=== PATIENT | male | born 1955 | race Caucasian/White ===

== ENCOUNTER → 2024-05-06 13:49 | Outpatient (BNVA) | payer MEDICARE, SELFPAY | PROVIDERS: Referring Provider Nurse Practitioner Family; Visit Provider Nurse Practitioner | DX: M79.642 Pain in left hand (principal); M18.12 Unilateral primary osteoarthritis of first carpometacarpal joint, left hand; Z46.89 Encounter for fitting and adjustment of other specified devices | CPT/HCPCS: 73130 ==

== ENCOUNTER 2024-05-06 15:41 | Outpatient (CLI) | payer MEDICARE, SELFPAY | END 2024-05-06 15:42 | disposition home or self-care (01) | LOC: SPT 15:42 | PROVIDERS: Visit Provider Nurse Practitioner | DX: Z46.89 Encounter for fitting and adjustment of other specified devices (principal); M18.12 Unilateral primary osteoarthritis of first carpometacarpal joint, left hand | CPT/HCPCS: L3924 ==

== ENCOUNTER 2025-10-15 11:55 | Inpatient (IN) | payer MEDICARE, SELFPAY ==
[2025-10-15] VITALS (40 sets, daily range): BP systolic 113–177; BP diastolic 56–126; PULSE 31–108; RESP 0–24; TEMP 36.4; O2SAT 92–98; BMI 31.0; BMI 30.2
--- NOTE | 2025-10-15 11:56 | XRR_ITS ---
PROCEDURE INFORMATION: Exam: XR Chest Exam date and time: 10/15/2025 12:23 PM Age: 70 years old Clinical indication: Pain; Chest pressure; Additional info: Cp TECHNIQUE: Imaging protocol: Radiologic exam of the chest. Views: 1 view. COMPARISON: No relevant prior studies available. FINDINGS: Lungs: Unremarkable. No consolidation. Pleural spaces: Unremarkable. No pleural effusion. No pneumothorax. Heart/Mediastinum: Unremarkable. No cardiomegaly. Bones/joints: Mild degenerative changes of the thoracic spine and bilateral glenohumeral joints. XR/XR chest 1V portable [id number] IMPRESSION: No acute findings.
--- OUTSIDE RECORDS SUMMARY | 2025-10-15 12:01 | XMS_ITS | Data Portability ---
Author Organization [facility] Conrado Cain [facility] Address [address] [place] [address] Assessment Encounter Date Assessment Date Assessment LastModified by Organization Details LastModified Time 07/17/2023 07/17/2023 Toenail fungus, discussed OTC remedies as well as prescription remedies. He will stick with OTC at this time. Overall he is doing well. Working on finishing his house. Not available 07/18/2023 12:54:25 02/03/2024 02/03/2024 Overall patient has been doing well. He has had some troubles with his joints as of late. CCA form completed at today's visit. Patient presented to office today for their Medicare Annual Wellness Visit. Education was provided on healthy nutrition, including a diet rich in fruits and vegetables, minimizing simple carbohydrates, salt, and saturated fats. Encouraged regular cardiovascular exercise such as walking at least 30 minutes daily, 5 times per week. Emphasized preventive health measures and educated pt on fall prevention and community-based lifestyle interventions to help reduce health risks and promote healthy living. Not available 02/17/2024 13:37:01 08/05/2024 08/05/2024 Patient here for a check-up today. Discussed with him taking some magnesium glycinate to help sleep at night. Not available 08/11/2024 22:15:56 04/21/2025 04/21/2025 Patient here for a check-up today. Overall he has been doing okay. This summer he has jury duty for . CCA form completed at today's visit. Not available 04/21/2025 10:26:34 Plan of Treatment Reminders Order Date Submit Date Provider Last Modified By Organization Details Last Modified Time Details Appointments OFFICE VISIT 20 2024 08:40A LETY MULLIGAN Not available Not available Not available Lab lipid panel, blood 2024 025 [facility], [address], [address], [place], [address], 04/21/2025 11:50:11 thyrotrop in, QN, serum or plasma 2024 025 [facility], [address], [address], [place], [address], 04/21/2025 12:09:09 CMP, serum or plasma 2024 025 [facility], [address], [address], [place], [address], 04/21/2025 11:50:09 CBC 2024 025 [facility], [address], [place], [address], 04/21/2025 11:12:33 PSA, total, serum or plasma 2023 024 [facility], [address] [place] [address] [address], [address] [place], [address], 08/17/2024 07:42:12 CMP, serum or plasma 2023 024 [facility], [address], [address], [place], [address], 08/05/2024 12:49:38 [facility], [address], [address], [place], [address], 08/05/2024 12:22:44 TSH, serum or plasma 2023 024 [facility] ([facility]), [address] [place], [address], 08/05/2024 12:36:20 vitamin D, 25-hydrox y, total, serum 2023 024 LE ROY [facility], [address] [place] [address], [address] [place], [address], 08/06/2024 06:36:03 CMP, serum or plasma 2023 024 [facility], [address] [place] [address], [address], 02/03/2024 14:23:02 lipid panel, blood 2023 024 [facility], [address] [place] [address], [address], 02/03/2024 14:23:04 CBC 2023 024 [facility], [address] [place] [address], [address], 02/03/2024 13:28:08 TSH, serum or plasma 2023 024 [facility] ([facility]), [address] [place] [address], [address], 02/03/2024 14:08:06 Referral None recorded. Procedures None recorded. Surgeries None recorded. Imaging XR, hand, 3 or more view [address] ([facility]), [address] [place] [address], [address], 02/18/2024 11:38:56 Medication Orders amlodipin e 10 mg tablet 2023 [facility][id number], [address], [place], [place], [id number], 08/05/2024 11:31:50 metoprolo l succinate ER 100 mg tablet,ex tended release 24 hr 2023 [facility] #[id number], [address], [place], [place], [id number], 08/05/2024 11:31:49 neomycin- polymyxin -hydrocor t 3.5 mg-10,000 unit/mL-1 % ear drops,zheng p 2023 [facility] #[id number], [address], [place], [place], [id number], 08/05/2024 10:54:50 Patient TargetsNo targets recorded. Patient Instructions Encounter Date Encounter Id Patient Instructions Last Modified By Organization Details Last Modified Time 07/17/2023 [id number] Call or return for questions or concerns. He will call for colonoscopy consult to hopefully get it done when his brother is here to help with transportation. Not available 07/18/2023 12:53:48 02/03/2024 [id number] advance directives: care instructions Not available 02/17/2024 13:37:28 Call or return for questions or concerns. Not available 02/03/2024 11:22:18 Discussed and explained advance directives such as standard forms to the patient. Not available 02/17/2024 13:37:16 08/05/2024 [id number] Call or return for questions or concerns. Not available 08/05/2024 11:14:19 04/21/2025 [id number] advance directives: care instructions Not available 04/21/2025 10:41:05 Call or return for questions or concerns. Not available 04/21/2025 10:23:08 Reason for Referral None Reported. Results Created Date Observation Date Name Description Value Unit Range Abnormal Flag Note LastModifiedBy Organization Detail LastModifiedTime 02/03/20 24 02/03/2024 CBC WBC 7.0 x10 4.5-10 .5 Not Available [facility] [address], [place], [address], 02/03/2024 13:25:03 02/03/20 24 02/03/2024 CBC RBC 5.10 x10 4.30-5 .90 Not Available [facility] [address], [place], [address], 02/03/2024 13:25:03 02/03/20 24 02/03/2024 CBC HGB 17.0 g/dL 13.5-1 8.0 Not Available [facility] [address], [place], [address], 02/03/2024 13:25:03 02/03/20 24 02/03/2024 CBC HCT 47.4 % 35.0-6 0.0 Not Available [facility] [address] [facility] 1, [place], [address], 02/03/2024 13:25:03 02/03/20 24 02/03/2024 CBC MCV 93.0 fL 80.0-9 9.9 Not Available [facility] [address] [facility] 1, [place], [address], 02/03/2024 13:25:03 02/03/20 24 02/03/2024 CBC MCH 33.4 pg 27.0-3 2.0 high Not Available [facility] [address] [facility] [address], [place], [address], 02/03/2024 13:25:03 02/03/20 24 02/03/2024 CBC MCHC 35.9 g/dL 32.0-3 6.0 Not Available [facility] [address] [facility] 1, [place], [address], 02/03/2024 13:25:03 02/03/20 24 02/03/2024 CBC RDW 13.1 % 11.5-1 4.5 Not Available [facility] [address] [facility] 1, [place], [address], 02/03/2024 13:25:03 02/03/20 24 02/03/2024 CBC plt 235.2 x10 150.0- 451.0 Not Available [facility] [address] [place] [address] [facility] 1, [place], [address], 02/03/2024 13:25:03 02/03/20 24 02/03/2024 CBC lymphocytes % 30.1 % 20.0-5 0.0 Not Available [facility] [address] [facility] 1, [place], [address], 02/03/2024 13:25:03 02/03/20 24 02/03/2024 CBC granulcytes % 60.3 % 30.0-7 0.0 Not Available [facility] [address] [facility] 1, [place], [address], 02/03/2024 13:25:03 02/03/20 24 02/03/2024 CBC monocytes % 7.8 % 2.0-10 .0 Not Available [place] [facility] [address] [facility] 1, [place], [address], 02/03/2024 13:25:03 02/03/20 24 02/03/2024 CBC granulcytes# 4.2 x10 Not Tracey ilable [facility] [address] [place] [facility], [place], [address], 02/03/2024 13:25:03 02/03/20 24 02/03/2024 CBC lymphocytes # 2.1 x10 Not Available [facility] [address] [address], [place], [address], 02/03/2024 13:25:03 02/03/20 24 02/03/2024 CBC monocytes # 0.6 x10 Not [facility] [address] [address], [place], [address], 02/03/2024 13:25:03 02/03/20 24 02/03/2024 CMP (MALE ) glucose 101.0 mg/dL 60.0-9 9.0 high Not Available [facility] [address] [address], [place], [address], 02/03/2024 14:23:01 02/03/20 24 02/03/2024 CMP (MALE ) BUN (blood urea nitrogen) 15.0 mg/dL 10.0-2 6.0 Not Available [facility] [address] [address], [place], [address], 02/03/2024 14:23:01 02/03/20 24 02/03/2024 CMP (MALE ) creatinine (serum) 1.1 mg/dL 0.4-1. 5 Not Available [facility] [address] [address], [place], [address], 02/03/2024 14:23:01 02/03/20 24 02/03/2024 CMP (MALE ) BUN/creatini ne ratio 13.89 ratio Not Available [facility] [address] [address], [place], [address], 02/03/2024 14:23:01 02/03/20 24 02/03/2024 CMP (MALE ) eGFR calculated 72.7 Not Available [facility] [address] [address], [place], [address], 02/03/2024 14:23:01 02/03/20 24 02/03/2024 CMP (MALE ) total protein 8.3 g/dL 6.0-8. 5 Not Available [facility] [address] [facility] 1, [place], [address], 02/03/2024 14:23:01 02/03/20 24 02/03/2024 CMP (MALE ) total bilirubin 0.9 mg/dL 0.2-1. 3 Not Available [facility] [address] [facility] 1, [place], [address], 02/03/2024 14:23:01 02/03/20 24 02/03/2024 CMP (MALE ) albumin 4.8 g/dL 3.5-5. 5 Not Available [facility] [address] [facility] 1, [place], [address], 02/03/2024 14:23:01 02/03/20 24 02/03/2024 CMP (MALE ) globulin 3.5 calc Not Available [facility] [address] [facility] 1, [place], [address], 02/03/2024 14:23:01 02/03/20 24 02/03/2024 CMP (MALE ) AST (SGOT) 31.0 U/L 0.0-46 .0 Not Available [facility] [address] [facility] 1, [place], [address], 02/03/2024 14:23:01 02/03/20 24 02/03/2024 CMP (MALE ) altv (SGPT) 24.0 U/L 13.0-6 9.0 normal Not Available [facility] [address] [facility] 1, [place], [address], 02/03/2024 14:23:01 02/03/20 24 02/03/2024 CMP (MALE ) A/G ratio 1.4 ratio Not Available [facility] [address] [facility] 1, [place], [address], 02/03/2024 14:23:01 02/03/20 24 02/03/2024 CMP (MALE ) ALP phos 87.0 U/L 30.0-1 40.0 normal Not Available [facility] [address] [facility] 1, [place], [address], 02/03/2024 14:23:01 02/03/20 24 02/03/2024 CMP (MALE ) calcium 9.1 mg/dL 8.4-10 .5 Not Available [facility] [address] [facility] 1, [place], [address], 02/03/2024 14:23:01 02/03/20 24 02/03/2024 CMP (MALE ) sodium 144.0 mmol/ L 136.0- 145.0 Not Available [facility] [address] [facility] 1, [place], [address], 02/03/2024 14:23:01 02/03/20 24 02/03/2024 CMP (MALE ) potassium 4.0 mmol/ L 3.5-5. 1 Not Available [facility] [address] [facility] 1, [place], [address], 02/03/2024 14:23:01 02/03/20 24 02/03/2024 CMP (MALE ) chloride 105.0 mmol/ L 98.0-1 10.0 normal Not Available [facility] [address] [facility] 1, [place], [address], 02/03/2024 14:23:01 02/03/20 24 02/03/2024 CMP (MALE ) C02 31.0 mmol/ L 22.0-3 1.0 Not Available [facility] [address] [facility] 1, [place], [address], 02/03/2024 14:23:01 02/03/20 24 02/03/2024 CMP (MALE ) anion gap 8.0 calc Not Available [facility] [address] [facility] 1, [place], [address], 02/03/2024 14:23:01 02/03/20 24 02/03/2024 CMP (MALE ) osmolality 298.1 calc Not Available [facility] [address] [facility] [address] [facility] 1, [place], [address], 02/03/2024 14:23:01 02/03/20 24 02/03/2024 LIPID PROFI LE (MALE ) cholesterol 185.0 mg/dL 0.0-20 0.0 Not Available [facility] [address] [facility] 1, [place], [address], 02/03/2024 14:23:04 02/03/20 24 02/03/2024 LIPID PROFI LE (MALE ) trig 134.0 mg/dL 0.0-15 0.0 Not Available [facility] [address] [facility] 1, [place], [address], 02/03/2024 14:23:04 02/03/20 24 02/03/2024 LIPID PROFI LE (MALE ) HDL - direct 45.0 mg/dL >40.0 Not Available [facility] [address] [facility] 1, [place], [address], 02/03/2024 14:23:04 02/03/20 24 02/03/2024 LIPID PROFI LE (MALE ) VLDL - direct 26.8 mg/dL Not Available [place] [facility] [address] [facility] 1, [place], [address], 02/03/2024 14:23:04 02/03/20 24 02/03/2024 LIPID PROFI LE (MALE ) LDL - direct 113.2 mg/dL 0.0-13 0.0 Not Available [facility] [address] [facility] 1, [place], [address], 02/03/2024 14:23:04 02/03/20 24 02/03/2024 TSH, serum or plasm a TSH 2.62 uIU/m L 0.49-3 .82 normal Not Available [facility] ([facility]) [address] [facility], [place], [address], 02/03/2024 11:19:11 03/05/20 24 03/16/2024 АЛЕКСАНДР ZER(T M)KEVEN , IFA WITH REFLE X TITER /JOHANN KERRY, SYSTE MENDOZA AUTOI MMUNE PANEL 1 KEVEN screen, ifa NEGATI VE negati ve KEVEN IFA is a first line scree n for detec ting the prese nce of up to appro ximat aniceto 150 autoa ntibo dies in vario us autoi mmune disea ses. A negat saulo KEVEN IFA resul t sugge sts an KEVEN-a ssoci ated autoi mmune disea se is not prese nt at this time, but is not defin itive . If there is high clini myriam suspi cion for Sjogr en's syndr ome, testi ng for anti- SS-A/ Ro antib tawanda shoul d be consi dered . Anti- Jaelyn-1 antib tawanda shoul d be consi dered for clini [place] suspe cted infla mmato ry myopa luciano . AC-0: Negat saulo Inter natio nal Conse nsus on KEVEN Patte rns https ://do i.org /10.1 515/c cl-2 018-0 052 For addit ional infor jayme roth e refer to http: //chelsey singh.Que stDia gnost ics.c om/fa q/FAQ 177 (This link is being provi ded for infor reji singh/chelsey carter nal purpo ses only. ) Not Available [facility] [address] [place], [address], 03/17/2024 00:52:34 03/05/20 24 03/16/2024 АЛЕКСАНДР ZER(T M)KEVEN , IFA WITH REFLE X TITER /JOHANN KERRY, SYSTE MENDOZA AUTOI MMUNE PANEL 1 DNA Ab (ds) crithidia,if a NEGATI VE negati ve Not Available [address], [address], 03/17/2024 00:52:34 03/05/20 24 03/16/2024 АЛЕКСАНДР ZER(T M)KEVEN , IFA WITH REFLE X TITER /JOHANN KERRY, SYSTE MENDOZA AUTOI MMUNE PANEL 1 chromatin (nucleosomal ) antibody <1.0 NEG ai <1.0 negati ve Not Available [address], [address], 03/17/2024 00:52:34 03/05/20 24 03/16/2024 АЛЕКСАНДР ZER(T M)KEVEN , IFA WITH REFLE X TITER /JOHANN KERRY, SYSTE MENDOZA AUTOI MMUNE PANEL 1 sm antibody <1.0 NEG ai <1.0 negati ve Not Available [address], [address], 03/17/2024 00:52:34 03/05/20 24 03/16/2024 АЛЕКСАНДР ZER(T M)KEVEN , IFA WITH REFLE X TITER /JOHANN KERRY, SYSTE MENDOZA AUTOI MMUNE PANEL 1 sm/community health program representative antibody <1.0 NEG ai <1.0 negati ve Not Available [address], [address], 03/17/2024 00:52:34 03/05/20 24 03/16/2024 АЛЕКСАНДР ZER(T M)KEVEN , IFA WITH REFLE X TITER /JOHANN KERRY, SYSTE MENDOZA AUTOI MMUNE PANEL 1 community health program representative antibody 1.0 POS ai <1.0 negati ve abnormal Not Available [address], [address], 03/17/2024 00:52:34 03/05/20 24 03/16/2024 АЛЕКСАНДР ZER(T M)KEVEN , IFA WITH REFLE X TITER /JOHANN KERRY, SYSTE MENDOZA AUTOI MMUNE PANEL 1 sjogren's antibody (ss-A) <1.0 NEG ai <1.0 negati ve Not Available [address], [address], 03/17/2024 00:52:34 03/05/20 24 03/16/2024 АЛЕКСАНДР ZER(T M)KEVEN , IFA WITH REFLE X TITER /JOHANN KERRY, SYSTE MENDOZA AUTOI MMUNE PANEL 1 sjogren's antibody (ss-B) <1.0 NEG ai <1.0 negati ve Not Available [address], [address], 03/17/2024 00:52:34 03/05/20 24 03/16/2024 АЛЕКСАНДР ZER(T M)KEVEN , IFA WITH REFLE X TITER /JOHANN KERRY, SYSTE MENDOZA AUTOI MMUNE PANEL 1 scl-70 antibody <1.0 NEG ai <1.0 negati ve Not Available [address], [address], 03/17/2024 00:52:34 03/05/20 24 03/16/2024 АЛЕКСАНДР ZER(T M)KEVEN , IFA WITH REFLE X TITER /JOHANN KERRY, SYSTE MENDOZA AUTOI MMUNE PANEL 1 jaelyn-1 antibody <1.0 NEG ai <1.0 negati ve Not Available [address], [address], 03/17/2024 00:52:34 03/05/20 24 03/16/2024 АЛЕКСАНДР ZER(T M)KEVEN , IFA WITH REFLE X TITER /JOHANN KERRY, SYSTE MENDOZA AUTOI MMUNE PANEL 1 centromere B antibody <1.0 NEG ai <1.0 negati ve Not Available [address], [address], 03/17/2024 00:52:34 03/05/20 24 03/16/2024 АЛЕКСАНДР ZER(T M)KEVEN , IFA WITH REFLE X TITER /JOHANN KERRY, SYSTE MENDOZA AUTOI MMUNE PANEL 1 complement component C3C 112 mg/dL 82-185 Not Available [address], [address], 03/17/2024 00:52:34 03/05/20 24 03/16/2024 АЛЕКСАНДР ZER(T M)KEVEN , IFA WITH REFLE X TITER /JOHANN KERRY, SYSTE MENDOZA AUTOI MMUNE PANEL 1 complement component C4C 23 mg/dL 15-53 Not Available [facility] [address], [address], 03/17/2024 00:52:34 03/05/20 24 03/16/2024 АЛЕКСАНДР ZER(T M)KEVEN , IFA WITH REFLE X TITER /JOHANN KERRY, SYSTE MENDOZA AUTOI MMUNE PANEL 1 cardiolipin Ab (IgA) 2.9 apl-U /mL Value Inter preta tion ----- ----- ----- ---- <20.0 Antib tawanda not detec raudel > or = 20.0 Antib tawanda detec raudel Not Available [facility] [address], [address], 03/17/2024 00:52:34 03/05/20 24 03/16/2024 АЛЕКСАНДР ZER(T M)KEVNE , IFA WITH REFLE X TITER /JOHANN KERRY, SYSTE MENDOZA AUTOI MMUNE PANEL 1 cardiolipin Ab (IgG) <2.0 gpl-U /mL Value Inter preta tion ----- ----- ----- ---- <20.0 Antib tawanda not detec raudel > or = 20.0 Antib tawanda detec raudel Not Available [facility] [address], [address], 03/17/2024 00:52:34 03/05/20 24 03/16/2024 АЛЕКСАНДР ZER(T M)KEVEN , IFA WITH REFLE X TITER /JOHANN KERRY, SYSTE MENDOZA AUTOI MMUNE PANEL 1 cardiolipin Ab (IgM) <2.0 mpl-U /mL Value Inter preta tion ----- ----- ----- ---- <20.0 Antib tawanda not detec raudel > or = 20.0 Antib tawanda detec raudel Not Available [address], [address], 03/17/2024 00:52:34 03/05/20 24 03/16/2024 АЛЕКСАНДР ZER(T M)KEVEN , IFA WITH REFLE X TITER /JOHANN KERRY, SYSTE MENDOZA AUTOI MMUNE PANEL 1 B2 glycoprotein I (IgA)Ab 3.4 U/mL Value Inter preta tion ----- ----- ----- ---- <20.0 Antib tawanda not detec raudel > or = 20.0 Antib tawanda detec raudel Not Available [address], [address], 03/17/2024 00:52:34 03/05/20 24 03/16/2024 АЛЕКСАНДР ZER(T M)KEVEN , IFA WITH REFLE X TITER /JOHANN KERRY, SYSTE MENDOZA AUTOI MMUNE PANEL 1 B2 glycoprotein I (IgG)Ab <2.0 U/mL Value Inter preta tion ----- ----- ----- ---- <20.0 Antib tawanda not detec raudel > or = 20.0 Antib tawanda detec raudel Not Available [address], [address], 03/17/2024 00:52:34 03/05/20 24 03/16/2024 АЛЕКСАНДР ZER(T M)KEVEN , IFA WITH REFLE X TITER /JOHANN KERRY, SYSTE MENDOZA AUTOI MMUNE PANEL 1 B2 glycoprotein I (IgM)Ab <2.0 U/mL The antip hosph olipi d antib tawanda syndr ome (APS) is a clini myriam-p athol ogic corre latio n that inclu luzma a clini myriam event (e.g. arter ial or venou s throm bosis , pregn nay morbi dity) and persi stent posit saulo antip hosph olipi d antib odies (IgM, IgG Cardi olipi n or b2GPI antib odies great er than the 99th perce ntile ; or a lupus antic oagul ant). Inter natio nal conse nsus guide lines for APS sugge st waiti ng at least 12 weeks befor e retes ting to confi rm antib tawanda persi stenc e. The Syste mednoza Lupus Inter natio nal Colla borat ing Clini cs immun ologi myriam class ifica tion crite ambrocio for syste mendoza lupus eryth emato zheng (SLE) inclu de testi ng for isoty pe IgA, which has yet to be incor porat ed into APS crite ambrocio. Low level antip hosph olipi d antib odies may somet imes be detec raudel in the setti ng of infec tion, drug thera py or aging . For addit ional infor jayme roth e refer to http: //[facility] emma singh.que stdia gnost ics.c om/fa q/FAQ 109 (This link is being provi ded for infor reji easley/e ducat ional purpo ses only. ) Value Inter preta tion ----- ----- ----- ---- <20.0 Antib tawanda not detec raudel > or = 20.0 Antib tawanda detec raudel Not Available [employer] [address] [address] [place], [address], 03/17/2024 00:52:34 03/05/20 24 03/16/2024 АЛЕКСАНДР ZER(T M)KEVEN , IFA WITH REFLE X TITER /JOHANN KERRY, SYSTE MENDOZA AUTOI MMUNE PANEL 1 rheumatoid factor (IgA) <5 U Refer ence Range : <=6 NEGAT SAULO >6 POSIT SAULO Not Available [employer] [address] [address] [place], [address], 03/17/2024 00:52:34 03/05/20 24 03/16/2024 АЛЕКСАНДР ZER(T M)KEVEN , IFA WITH REFLE X TITER /JOHANN KERRY, SYSTE MENDOZA AUTOI MMUNE PANEL 1 rheumatoid factor (IgG) <5 U Refer ence Range : <=6 NEGAT SAULO >6 POSIT SAULO Not Available [address], [address], 03/17/2024 00:52:34 03/05/20 24 03/16/2024 АЛЕКСАНДР ZER(T M)KEVEN , IFA WITH REFLE X TITER /JOHANN KERRY, SYSTE MENDOZA AUTOI MMUNE PANEL 1 rheumatoid factor (IgM) 6 U Refer ence Range : <=6 NEGAT SAULO >6 POSIT SAULO Not Available [address], [address], 03/17/2024 00:52:34 03/05/20 24 03/16/2024 АЛЕКСАНДР ZER(T M)KEVEN , IFA WITH REFLE X TITER /JOHANN KERRY, SYSTE MENDOZA AUTOI MMUNE PANEL 1 cyclic citrullinate d peptide (ccp) Ab (IgG) <16 units Refer ence Range : NEGAT SUALO: <20 WEAK POSIT SAULO: 20-39 MODER ATE POSIT SAULO: 40-59 STRON G POSIT SAULO >59 Not Available [address], [address], 03/17/2024 00:52:34 03/05/20 24 03/16/2024 АЛЕКСАНДР ZER(T M)KEVEN , IFA WITH REFLE X TITER /JOHANN KERRY, SYSTE MENDOZA AUTOI MMUNE PANEL 1 mutated citrullinate d vimentin (MCV) Ab <20 U/mL <20 Anti- mutat ed citru llina raudel vimen tin antib tawanda may be used as a secon d-nicola e bradleye r of rheum atoid arthr itis, in addit ion to rheum atoid facto r and anti- cycli c citru llina raudel pepti de (CCP) . Not Available [address], [address], 03/17/2024 00:52:34 03/05/20 24 03/16/2024 АЛЕКСАНДР ZER(T M)KEVEN , IFA WITH REFLE X TITER /JOHANN KERRY, SYSTE MENDOZA AUTOI MMUNE PANEL 1 thyroid peroxidase antibodies 1 IU/mL <9 Not Available [facility] [address] [place], [address], 03/17/2024 00:52:34 03/05/20 24 03/08/2024 RHEUM ATOID FACTO R rheumatoid factor <10 IU/mL <14 normal Not Available [facility] [address] [place], [address], 03/08/2024 14:25:26 03/05/20 24 03/08/2024 C-FRANCESCO CTIVE PROTE IN C-reactive protein <3.0 mg/L <8.0 normal Not Available [place] [address] [place], [address], 03/08/2024 14:25:27 03/05/20 24 03/05/2024 ESR (eryt hrocy te sedim entat ion rate) , blood SedRate 12 Not Available [facility] ([facility]) [address] [place], [address], 03/02/2024 18:09:34 08/05/20 24 08/05/2024 CBC WBC 6.0 x10 4.5-10 .5 Not Available [facility] [address], [address], 08/05/2024 12:22:43 08/05/20 24 08/05/2024 CBC RBC 4.88 x10 4.30-5 .90 Not Available [facility] [address], [address], 08/05/2024 12:22:43 08/05/20 24 08/05/2024 CBC HGB 15.5 g/dL 13.5-1 8.0 Not Available [facility] [address] [facility] [address], [place], [address], 08/05/2024 12:22:43 08/05/20 24 08/05/2024 CBC HCT 44.9 % 35.0-6 0.0 Not Available [facility] [address] [facility] [address], [place], [address], 08/05/2024 12:22:43 08/05/20 24 08/05/2024 CBC MCV 92.0 fL 80.0-9 9.9 Not Available [facility] [address] [facility] [address], [place], [address], 08/05/2024 12:22:43 08/05/20 24 08/05/2024 CBC MCH 31.7 pg 27.0-3 2.0 Not Available [facility] [address] [facility] [address], [place], [address], 08/05/2024 12:22:43 08/05/20 24 08/05/2024 CBC MCHC 34.5 g/dL 32.0-3 6.0 Not Available [facility] [address] [facility] [address], [place], [address], 08/05/2024 12:22:43 08/05/20 24 08/05/2024 CBC RDW 13.1 % 11.5-1 4.5 Not Available [facility] [address] [facility] [facility] [address] [facility] 1, [place], [address], 08/05/2024 12:22:43 08/05/20 24 08/05/2024 CBC plt 244.2 x10 150.0- 451.0 Not Available [facility] [address] [facility] [address] [facility] 1, [place], [address], 08/05/2024 12:22:43 08/05/20 24 08/05/2024 CBC lymphocytes % 29.6 % 20.0-5 0.0 Not Available [place] [facility] [address] [facility] 1, [place], [address], 08/05/2024 12:22:43 08/05/20 24 08/05/2024 CBC granulcytes % 61.0 % 30.0-7 0.0 Not Available [facility] [address] [address], [place], [address], 08/05/2024 12:22:43 08/05/20 24 08/05/2024 CBC monocytes % 6.7 % 2.0-16 .0 Not Available [facility] [address] [address], [place], [address], 08/05/2024 12:22:43 08/05/20 24 08/05/2024 CBC granulcytes# 3.7 x10 Not Tracey ilable [facility] [address] [address], [place], [address], 08/05/2024 12:22:43 08/05/20 24 08/05/2024 CBC lymphocytes # 1.8 x10 Not Available [facility] [address] [address], [place], [address], 08/05/2024 12:22:43 08/05/2008/05/2024 CBC monocytes # 0.4 x10 Not Avai lable [facility] [address] [address], [place], [address], 08/05/2024 12:22:43 08/05/2008/05/2024 CMP (MALE ) glucose 114.0 mg/dL 60.0-9 9.0 high Not Available [facility] [address] [address], [place], [address], 08/05/2024 12:49:38 08/05/2008/05/2024 CMP (MALE ) BUN (blood urea nitrogen) 13.0 mg/dL 10.0-2 6.0 Not Available [place] [facility] [address] [facility] 1, [place], [address], 08/05/2024 12:49:38 08/05/20 24 08/05/2024 CMP (MALE ) creatinine (serum) 1.0 mg/dL 0.4-1. 5 Not Available [facility] [address] [facility] 1, [place], [address], 08/05/2024 12:49:38 08/05/20 24 08/05/2024 CMP (MALE ) BUN/creatini ne ratio 13.00 ratio Not Available [facility] [address] [facility] 1, [place], [address], 08/05/2024 12:49:38 08/05/20 24 08/05/2024 CMP (MALE ) eGFR calculated 79.2 Not Available [facility] [address] [facility] [facility] 1, [place], [address], 08/05/2024 12:49:38 08/05/20 24 08/05/2024 CMP (MALE ) total protein 7.5 g/dL 6.0-8. 5 Not Available [facility] [address] [place] [facility] 1, [place], [address], 08/05/2024 12:49:38 08/05/20 24 08/05/2024 CMP (MALE ) total bilirubin 0.7 mg/dL 0.2-1. 3 Not Available [facility] [address] [facility] [address] [facility] 1, [place], [address], 08/05/2024 12:49:38 08/05/20 24 08/05/2024 CMP (MALE ) albumin 4.4 g/dL 3.5-5. 5 Not Available [facility] [address] [facility] 1, [place], [address], 08/05/2024 12:49:38 08/05/20 24 08/05/2024 CMP (MALE ) globulin 3.1 calc Not Available [facility] [address] [place] [address] [facility] 1, [place], [address], 08/05/2024 12:49:38 08/05/20 24 08/05/2024 CMP (MALE ) AST (SGOT) 23.0 U/L 0.0-46 .0 Not Available [facility] [address] [place] [address] [facility] 1, [place], [address], 08/05/2024 12:49:38 08/05/20 24 08/05/2024 CMP (MALE ) altv (SGPT) 18.0 U/L 13.0-6 9.0 normal Not Available [facility] [address] [place] [address] [facility] 1, [place], [address], 08/05/2024 12:49:38 08/05/20 24 08/05/2024 CMP (MALE ) A/G ratio 1.4 ratio Not Available [facility] [address] [place] [address] [facility] 1, [place], [address], 08/05/2024 12:49:38 08/05/20 24 08/05/2024 CMP (MALE ) ALP phos 69.0 U/L 30.0-1 40.0 normal Not Available [facility] [address] [place] [address] [facility] 1, [place], [address], 08/05/2024 12:49:38 08/05/20 24 08/05/2024 CMP (MALE ) calcium 9.2 mg/dL 8.4-10 .5 Not Available [facility] [address] [place] [address] [facility] 1, [place], [address], 08/05/2024 12:49:38 08/05/20 24 08/05/2024 CMP (MALE ) sodium 140.0 mmol/ L 136.0- 145.0 Not Available [facility] [address] [facility] 1, [place], [address], 08/05/2024 12:49:38 08/05/20 24 08/05/2024 CMP (MALE ) potassium 4.1 mmol/ L 3.5-5. 1 Not Available [facility] [address] [facility] 1, [place], [address], 08/05/2024 12:49:38 08/05/20 24 08/05/2024 CMP (MALE ) chloride 107.0 mmol/ L 98.0-1 10.0 normal Not Available [facility] [address] [facility] 1, [place], [address], 08/05/2024 12:49:38 08/05/20 24 08/05/2024 CMP (MALE ) C02 30.0 mmol/ L 22.0-3 1.0 Not Available [facility] [address] [facility] 1, [place], [address], 08/05/2024 12:49:38 08/05/20 24 08/05/2024 CMP (MALE ) anion gap 3.0 calc Not Available [place] [facility] 805 [facility] 1, [place], [address], 08/05/2024 12:49:38 08/05/20 24 08/05/2024 CMP (MALE ) osmolality 290.0 calc Not Available [facility] [address] [facility] 1, [place], [address], 08/05/2024 12:49:38 08/05/20 24 08/06/2024 PSA, TOTAL PSA, total 0.87 NG/mL < or = 4.00 normal The total PSA value from this assay crystal sarah is stand ardiz ed again st the WHO stand shan. The test resul t will be appro ximat aniceto 20% lower when deon red to the equim olar- stand ardiz ed total PSA (Rowe man Coult er). Deon rison of seria l PSA resul ts shoul d be inter prete d with this fact in mind. This test was perfo rmed using the Sieme ns chemi lumin escen t metho d. Value s obtai raffaele from diffe rent assay metho ds canno t be used inter vick eably . PSA level s, regar dless of value , shoul d not be inter prete d as absol [place] evide nce of the prese nce or absen ce of disea se. Not Available [facility] [address] [place], [address], 08/06/2024 06:36:02 08/05/20 24 08/06/2024 VITAM IN D,25- OH,TO KIA,I A vitamin D,25-oh,tota l,ia 49 NG/mL 30-100 normal Vitam in D Statu s 25-OH Vitam in D: Defic iency : <20 ng/mL Insuf ficie ncy: 20 - 29 ng/mL Optim al: > or = 30 ng/mL For 25-OH Vitam in D testi ng on patie nts on D2-howard pplem entat ion and patie nts for whom quant itati on of D2 and D3 fract ions is requi red, the Quest Assur eD(TM ) 25-OH VIT D, (D2,D 3), LC/MS /MS is recom aye d: order code 31051 (zoya ents >2yrs ). See Note 1 Note 1 For addit ional infor jayme roth refer to http: //chelsey singh.Abdullahi stDia gnost ics.c om/fa q/FAQ 199 (This link is being provi ded for infor reji easley/ brian lopez purpo ses only. ) Not Available [employer] [facility] [address] [place], [address], 08/06/2024 06:36:03 09/26/20 24 08/05/2024 TSH, serum or plasm a TSH 2.35 uIU/m L 0.49-3 .82 normal Not Available [facility] [address] [place], [address], 08/05/2024 10:58:15 04/21/20 25 04/21/2025 CBC WBC 5.8 x10 4.5-10 .5 Not Available [facility] [address] [facility] Adeline [facility] 1, [place], [address], 04/21/2025 11:12:33 04/21/20 25 04/21/2025 CBC RBC 4.63 x10 4.30-5 .90 Not Available [facility] [address] [facility] Adeline [facility] 1, [place], [address], 04/21/2025 11:12:33 04/21/20 25 04/21/2025 CBC HGB 14.6 g/dL 13.5-1 8.0 Not Available [facility] [address] [facility] Adeline [facility] 1, [place], [address], 04/21/2025 11:12:33 04/21/20 25 04/21/2025 CBC HCT 43.6 % 35.0-6 0.0 Not Available [facility] [address] [facility] Adeline [facility] 1, [place], [address], 04/21/2025 11:12:33 04/21/20 25 04/21/2025 CBC MCV 94.1 fL 80.0-9 9.9 Not Available [facility] [address] [facility] Adeline [facility] 1, [place], [address], 04/21/2025 11:12:33 04/21/20 25 04/21/2025 CBC MCH 31.5 pg 27.0-3 2.0 Not Available [facility] [address] [facility] Adeline [facility] 1, [place], [address], 04/21/2025 11:12:33 04/21/20 25 04/21/2025 CBC MCHC 33.4 g/dL 32.0-3 6.0 Not Available [facility] [address] [facility] 1, [place], [address], 04/21/2025 11:12:33 04/21/20 25 04/21/2025 CBC RDW 12.8 % 11.5-1 4.5 Not Available [facility] [address] [facility] 1, [place], [address], 04/21/2025 11:12:33 04/21/2004/21/2025 CBC plt 208.0 x10 150.0- 451.0 Not Available [facility] [address] [facility] 1, [place], [address], 04/21/2025 11:12:33 04/21/20 25 04/21/2025 CBC lymphocytes % 32.9 % 20.0-5 0.0 Not Available [facility] [address] [facility] 1, [place], [address], 04/21/2025 11:12:33 04/21/20 25 04/21/2025 CBC granulcytes % 54.8 % 30.0-7 0.0 Not Available [facility] [address] [facility] 1, [place], [address], 04/21/2025 11:12:33 04/21/20 25 04/21/2025 CBC monocytes % 9.5 % 2.0-16 .0 Not Available [facility] [address] [facility] [facility] [address] 1, [place], [address], 04/21/2025 11:12:33 04/21/20 25 04/21/2025 CBC granulcytes# 3.2 x10 Not Tracey ilable [facility] [address] [place] [facility], [place], [address], 04/21/2025 11:12:33 04/21/20 25 04/21/2025 CBC lymphocytes # 1.9 x10 Not Available [facility] [address] [place] [facility], [place], [address], 04/21/2025 11:12:33 04/21/20 25 04/21/2025 CBC monocytes # 0.6 x10 Not Avai lable [facility] [address] [facility] 1, [place], [address], 04/21/2025 11:12:33 04/21/20 25 04/21/2025 CMP (MALE ) glucose 98.0 mg/dL 60.0-9 9.0 Not Available [facility] [address] [facility], [place], [address], 04/21/2025 11:50:08 04/21/20 25 04/21/2025 CMP (MALE ) BUN (blood urea nitrogen) 14.0 mg/dL 10.0-2 6.0 Not Available [facility] [address] [facility] 1, [place], [address], 04/21/2025 11:50:08 04/21/20 25 04/21/2025 CMP (MALE ) creatinine (serum) 1.0 mg/dL 0.4-1. 5 Not Available [facility] [address] [facility] [address] [address], [place], [address], 04/21/2025 11:50:08 04/21/20 25 04/21/2025 CMP (MALE ) BUN/creatini ne ratio 14.00 ratio Not Available [facility] [address] [facility], [place], [address], 04/21/2025 11:50:08 04/21/20 25 04/21/2025 CMP (MALE ) eGFR calculated 79.0 Not Available [facility] [address] [facility], [place], [address], 04/21/2025 11:50:08 04/21/20 25 04/21/2025 CMP (MALE ) total protein 7.5 g/dL 6.0-8. 5 Not Available [facility] [address]05 [facility] 1, [place], [address], 04/21/2025 11:50:08 04/21/20 25 04/21/2025 CMP (MALE ) total bilirubin 0.7 mg/dL 0.2-1. 3 Not Available [facility] [address] [facility] 1, [place], [address], 04/21/2025 11:50:08 04/21/20 25 04/21/2025 CMP (MALE ) albumin 4.4 g/dL 3.5-5. 5 Not Available [facility] [address] [place] [facility], [place], [address], 04/21/2025 11:50:08 04/21/20 25 04/21/2025 CMP (MALE ) globulin 3.1 calc Not Available [facility] [address] [address], [place], [address], 04/21/2025 11:50:08 04/21/20 25 04/21/2025 CMP (MALE ) AST (SGOT) 27.0 U/L 0.0-46 .0 Not Available [facility] [address] [facility], [place], [address], 04/21/2025 11:50:08 04/21/20 25 04/21/2025 CMP (MALE ) altv (SGPT) 20.0 U/L 13.0-6 9.0 normal Not Available [facility] [facility], [place], [address], 04/21/2025 11:50:08 04/21/20 25 04/21/2025 CMP (MALE ) A/G ratio 1.4 ratio Not Available [facility] [address] [facility] 1, [place], [address], 04/21/2025 11:50:08 04/21/20 25 04/21/2025 CMP (MALE ) ALP phos 71.0 U/L 30.0-1 40.0 normal Not Available [facility] [address] [place] [address] [facility] 1, [place], [address], 04/21/2025 11:50:08 04/21/20 25 04/21/2025 CMP (MALE ) calcium 9.3 mg/dL 8.4-10 .5 Not Available [facility] [address] [facility] 1, [place], [address], 04/21/2025 11:50:08 04/21/20 25 04/21/2025 CMP (MALE ) sodium 141.0 mmol/ L 136.0- 145.0 Not Available [facility] [address] [facility] 1, [place], [address], 04/21/2025 11:50:08 04/21/20 25 04/21/2025 CMP (MALE ) potassium 4.0 mmol/ L 3.5-5. 1 Not Available [facility] [address] [place] [address] [facility] 1, [place], [address], 04/21/2025 11:50:08 04/21/20 25 04/21/2025 CMP (MALE ) chloride 104.0 mmol/ L 98.0-1 10.0 normal Not Available [facility] [address] [place] [address] [facility] 1, [place], [address], 04/21/2025 11:50:08 04/21/20 25 04/21/2025 CMP (MALE ) C02 29.0 mmol/ L 22.0-3 1.0 Not Available [facility] [address] [facility] 1, [place], [address], 04/21/2025 11:50:08 04/21/20 25 04/21/2025 CMP (MALE ) anion gap 8.0 calc Not Available [facility] [address] [facility], [place], [address], 04/21/2025 11:50:08 04/21/20 25 04/21/2025 CMP (MALE ) osmolality 291.6 calc Not Available [facility] [address] [facility] [address] [address], [place], [address], 04/21/2025 11:50:08 04/21/20 25 04/21/2025 LIPID PROFI LE (MALE ) cholesterol 117.0 mg/dL 0.0-20 0.0 Not Available [facility] [address] [facility], [place], [address], 04/21/2025 11:50:11 04/21/20 25 04/21/2025 LIPID PROFI LE (MALE ) trig 105.0 mg/dL 0.0-15 0.0 Not Available [facility] [address] [address], [place], [address], 04/21/2025 11:50:11 04/21/20 25 04/21/2025 LIPID PROFI LE (MALE ) HDL - direct 32.0 mg/dL >40.0 low Not Available [facility] [address] [facility], [place], [address], 04/21/2025 11:50:11 04/21/20 25 04/21/2025 LIPID PROFI LE (MALE ) VLDL - direct 21.0 mg/dL Not Available [facility] [address] [facility], [place], [address], 04/21/2025 11:50:11 04/21/20 25 04/21/2025 LIPID PROFI GILLES (MALE ) LDL - direct 64.0 mg/dL 0.0-13 0.0 Not Available [facility] [address]05 [facility] 1, [place], [address], 04/21/2025 11:50:11 04/21/20 25 04/21/2025 TSH TSH 3.35 uIU/m L 0.49-3 .82 Not Available [facility] [address] [facility] 1, [place], [address], 04/21/2025 12:09:09 02/04/20 24 02/03/2024 XR, hand, 3 or more view No observ ation record ed. [email or web address] [facility]) [address] [place], [address], 02/18/2024 12:46:54 06/16/20 24 06/15/2024 , echo ardio gram No observ ation record ed. [facility] [address] [place], [address], 08/05/2024 11:07:32 06/22/20 24 06/21/2024 angelina can cardi olite stres s test (PROC ) No observ ation record ed. [facility] [address], [address], 08/05/2024 11:07:32 06/24/20 24 06/15/2024 cesar r monit or No observ ation record ed. [address] [place], [address], 08/05/2024 11:07:32 Result Notes None recorded. Problems Name Problem SNOMED Code Status Onset Date Resolution Date Notes Provider Name and Address Organization Details Recorded Time Family history of premature coronary heart disease 300980336 Active 2022 MYAH TOWNSEND pineda [facility] [place] 10:54:20 Colonic polypectomy Active 2023 MYAH sung [facility] [place] 14:28:04 Problem Notes None recorded. Procedures Surgical History Date Name Laterality Status Provider Name and Address Organization Details Recorded Time 10/15/20 24 Colonoscopy completed MYAH TOWNSEND [facility] [place] 10/26/2024 14:27:11 06/15/20 24 examination of heart completed [facility] 07/01/2024 17:04:10 02/03/20 24 plain X-ray of hand completed [facility] 02/18/2024 12:48:49 hernia repair completed TAMARA LOPEZ [address], [address], [facility] [place] 02/03/2024 11:14:57 cholecystectomy completed TAMARA LOPEZ [address], [address] [place] [address], [facility], [place] 02/03/2024 11:15:13 Imaging Results None recorded. Procedure Notes None recorded. Medical Equipment None Reported. Allergies No known drug allergies Medications Name Sig Start Date Stop Date Status Note LastModified by Organization Details LastModified Time metoprolo l succinate ER 100 mg tablet,ex tended release 24 hr TAKE 1 TABLET BY MOUTH DAILY 2024 active Not Available Not Available Not Avai lable amlodipin e 10 mg tablet TAKE 1 TABLET BY MOUTH DAILY 2024 active Not Available Not Available Not Avai lable metoclopr amide 10 mg tablet TAKE 1 TABLET BY MOUTH 1 TIME FOR 1 DAY DIRECTED 04/21 completed Not Available Not Available Not Available neomycin- polymyxin -hydrocor t 3.5 mg-10,000 unit/mL-1 % ear drops,zheng p SHAKE LIQUID AND INSTILL 4 DROPS TO AFFECTED EAR THREE TIMES DAILY 08/05 completed Not Available Not Available Not Available rosuvasta tin 5 mg tablet TAKE 1 TABLET BY MOUTH DAILY active Not Available Not Available No t Available metoprolo l succinate daily 07/17 completed Recorded 11/22/19 10:42AM by LETY Alanis, Office Visit; Refill Quantity : 90; Tablet; Not Available Not Available Not Available GaviLyte- G 236 gram-22.7 4 gram-6.74 gram-5.86 gram oral solution MIX AND DRINK DIRECTED 04/21 completed Not Available Not Available Not Available amlodipin e besylate (bulk) daily 07/17 completed Recorded 11/22/19 23 10:41AM by LETY Alanis, Office Visit; Refill Quantity : 90; Tablet; Not Available Not Available Not Available Vitals Date Recorded Body height Body mass index (BMI) Body weight Oxygen saturation Heart rate Body temperature Systolic And Diastolic Provider Name and Address Organization Details Last Updated DateTime 4 180.34 cm 32.9 kg/m2 248346. 8 g 94 % 54 /min 97.8 [degF] 120/70 mm[Hg] KRISTIAN [facility] 4 11:02:37 Date Recorded Body height Body mass index (BMI) Body weight Oxygen saturation Heart rate Respiratory rate Systolic And Diastolic Provider Name and Address Organization Details Last Updated DateTime 5 180.34 cm 31.5 kg/m2 314560. 88 g 97 % 58 /min 18 /min 138/80 mm[Hg] MYAH TOWNSEND [facility] 5 09:55:45 Date Recorded Body height Body mass index (BMI) Body weight Body temperature Heart rate Oxygen saturation Systolic And Diastolic Provider Name and Address Organization Details Last Updated DateTime 4 180.34 cm 32.6 kg/m2 121337. 61 g 97.6 [degF] 55 /min 95 % 148/80 mm[Hg] Jade Alvarez [facility] 4 10:43:26 Date Recorded Body height Body mass index (BMI) Body weight Oxygen saturation Heart rate Respiratory rate Systolic And Diastolic Provider Name and Address Organization Details Last Updated DateTime 3 180.34 cm 31.8 kg/m2 218278. 06 g 94 % 70 /min 18 /min 144/94 mm[Hg] MYAH KRISTIAN [facility] 3 16:33:45 Date Recorded Systolic And Diastolic Provider Name and Address Organization Details Last Updated DateTime 08/05/2024 138/80 mm[Hg] TAMARA LOPEZ, [address], [address], [facility] 08/05/2024 11:20:47 Date Recorded Body height Body mass index (BMI) Body weight Oxygen saturation Heart rate Respiratory rate Provider Name and Address Organization Details Last Updated DateTime 4 180.34 cm 33.2 kg/m2 853707. 98 g 97 % 58 /min 18 /min MYAH KRISTIAN [facility] 4 10:53:15 Social History Question Answer Notes LastModified by Organizat ion Details LastModified Time Tobacco Smoking Status Never Smoker MYAH KRISTIAN [facility] 07/17/2023 16:38:48 Do You Have An Advance Directive? No Information not available 02/03/2024 What Is Your Advocate's Name? Michelle Truong Information not available 02/03/2024 What Is Your Relation To The Advocate? Sister Information not available 02/03/2024 Is Blood Transfusion Acceptable In An Emergency? Yes Information not available 02/03/2024 What Is Your Level Of Caffeine Consumption? Moderate Coffee [email or web address] Information not available 04/21/2025 What Is Your Code Status? Full Code Information not available 02/03/2024 Do You Have A Directive To Physicians? No Information not available 02/03/2024 Do You Have A Medical Power Of Terrazzo Worker? No Information not available 02/03/2024 What Was The Date Of Your Most Recent Tobacco Screening? 04/21/2025 Information not available 04/21/2025 Do You Have An Out Of Hospital DNR? No Information not available 02/03/2024 Do You Have A Patient Advocate? Yes Information not available 02/03/2024 Sex: Unknown Functional Status Question Answer Note LastModified by Organizat ion Details LastModified Time Do you use any illicit or recreational drugs? No [email or web address] Information not available 07/17/2023 Do you or have you ever used any other forms of tobacco or nicotine? No Information not available 02/03/2024 What is your level of alcohol consumption? Occasional Beer Information not available 07/17/2023 Are you currently employed? No retired [email or web address] Information not available 04/21/2025 Are you able to walk independently without assistance or assistive devices? YESWOREST [email or web address] Information not available 04/21/2025 Are you able to care for yourself independently? Yes [email or web address] Information not available 07/17/2023 Do you or have you ever used any nicotine-free cigarettes, vape, or chewing tobacco? No Information not available 04/21/2025 Mental Status None recorded. Family History Relationship Description Onset Age of this Age Resolved Age Notes LastModified by Organization Details LastModified Time Father Coronary arterioscler osis age 86 [email or web address] Not available 07/17/2023 16:35:08 Paternal Uncle Coronary arterioscler osis [email or web address] Not available 07/17 16:35:27 Mother Malignant neoplasm of female breast in her 50's [email or web address] Not available 07/17/2023 16:35:50 Medical History Condition Response High Cholesterol Y Hypertension Y Immunizations Vaccine Type Date Status Note Provider Nam e and Address Organization Details Recorded Time Influenza, adjuvanted, quadrivalent, PF 08/09/2022 completed TAMARA LOPEZ, [facility] [address] [place], [address], [facility], [place] 07/17/2023 17:06:41 Influenza, adjuvanted, quadrivalent, PF 08/30/2023 completed LETY CARLTON [address] [place] [address], [phone], [facility], [place] 02/03/2024 11:10:09 Past Encounters Encounter ID Performer Location Encounter Start Date Encounter Closed Date Diagnosis/Indication Diagnosis SNOMED-CT Code Diagnosis ICD10 Code Diagnosis IMO Codes Diagnosis Note [id number] LETY CARLTON [facility] ([facility]) [address] [place] [id number] 07/17/2023 16:16:42 07/25/2023 17:53:36 Essential hypertension [id number] I10 Doing well. Will get labs with next visit. [id number] LETY CARLTON [facility] ([facility]) [address] [place] [address] [phone] 5 02/03/2024 10:35:02 02/04/2024 09:46:35 Advance care planning [id number] Z71.89 Thumb join t painful on movement [id number] M79.642 Essential hypertension 95888342 I10 Doing well. Will get labs with next visit. Pain of le ft shoulder joint [id number] M25.512 Unable to touch the small of his back, does not want to have surgery at this time. [id number] Alec Meraz MD [facility] ([facility]) [address] [place] [address] [phone] 04/22/2024 10:12:49 04/22/2024 11:11:15 Otitis externa [id number] H60.91 [id number] LETY CARLTON [facility] ([facility]) [address] [place] [address] [id number] 5 08/05/2024 10:20:02 08/05/2024 11:34:38 Essential hypertension [id number] I10 Screening for malignant neoplasm of prostate [id number] Z12.5 Fatigue 26619783 R53.83 [id number] LETY CARLTON [facility] ([facility]) [address] [place] [address] [id number] 04/21/2025 09:34:40 04/21/2025 10:55:44 Essential hypertension 11885346 I10 67943 Mixed hyperlipidemia 267 155218 E78.2 57912 Counseling [id number] Z71 .89 [id number] Health Concerns Section Related Observation LastModified by Organization Detai ls LastModified Time None Recorded Concern Status LastModified by Organization Details LastModified Time None Recorded Advance Directives Directive N: Payers Insurance Date Sequence Insurance Name Policy Number Policy Aponte Covered Member ID Aponte Member ID Guarantor Name 04/21/2025 1 [facility] (MEDICARE REPLACEMENT/A DVANTAGE - PPO) [id number] Eulogio Salas Alexi [id number] Mehrdad Alexi Notes Date Note Type Note Provider Name and Address Organization Details Recorded Time 3 text/htm l Hypertension IM/FMReported by PatientHPIFor severity, patient reportsstage 2 (>140/>90 mmhg). For quality, patient reportshere for check-up. For duration, patient reportshtn present for ___ years. For associated symptoms, patient reportsno shortness of breathandno chest pain. TAMARA LOPEZ, [facility] [address] [place], [address], [facility] 07/18/2023 12:54:30 4 text/htm l Hypertension IM/FMReported by PatientHPIFor associated symptoms, patient reportsshortness of breathandpalpitationsbut reportsno numbness,no tingling, andno headaches(patient has occasional chest discomfort, but not pain and occasional palpitations). For quality, patient reportshere for check-up. For severity, patient reportsnormal (<120/<80 mmhg)andmoderate. Medicare Annual Wellness VisitReported by PatientSocial/Behavioral HistoryFor diet and nutrition, patient reportshealthy diet. For fracture risk, patient reportsno history of fractures. For physical activity, patient reportsexercises on a regular basisandgood physical condition.Mental Status:For depression risk, patient reportsno history of depression.Functional AbilityFor hearing, patient reportsno loss of hearing. For vision, patient reportsno vision problems. For activities of daily living, patient reportsable to bathe with limited or no assistanceandable to contol urination and bowels. For instrumental activities of daily living, patient reportsable to do house work with limited or no assistance. For falls risk assessment, patient reportsno frequent falls while walking. For home safety, patient reportsno unsafe sofi hazzards. LETY CARLTON [address] [place], [address], [facility] 02/17/2024 13:38:11 4 text/htm l Ear Pain Brief HPIReported by PatientHPIFor quality, patient reportsaching pain. For associated symptoms, patient reportsdecreased hearingandmuffled hearingbut reportsno vertigo. For location, patient reportsright. For onset/timing, patient reportsnew onset (this morning). Alec Meraz MD [address] [place], [address], [facility] 04/22/2024 11:04:14 4 text/htm l FatigueReported by PatientHPIFor quality, patient reportsgeneralized. For duration, patient reports>6 months. Hypertension IM/FMReported by PatientHPIFor quality, patient reportshere for check-upandfatigue. For severity, patient reportsmoderate. For duration, patient reportshtn noted for ___ months. For self care, patient reportsnot under emotional stressandnon-smoker. For associated symptoms, patient reportsno shortness of breathandno chest pain.ROS as noted in the HPI TAMARA LOPEZ, LETY [address] [place], [address], [facility] 08/11/2024 22:16:30 5 text/htm l HyperlipidemiaReported by PatientHPIFor duration, patient reportschronic. For control, patient reportsusually well controlled. For adherence to treatment plan, patient reportstakes medications as prescribed. Hypertension IM/FMReported by PatientHPIFor quality, patient reportshere for check-up. For duration, patient reportshtn present for ___ years. For alleviating factors, patient reportsmedication. For self care, patient reportsnon-smoker. For associated symptoms, patient reportsno shortness of breathandno chest pain. TAMARA OLPEZ, [facility] [place], [address], [facility] 04/21/2025 10:42:31
--- NOTE | 2025-10-15 12:02 | ECG_ITS ---
[facility] Date: 2025-10-15 Pat Name: Mehrdad Truong Department: Room: Gender: Male Manager Technical Services: : 1955 Requested By: Lamberto Gonzalez Order Number: [id number] Reading MD: ELVER YU Measurements Intervals [place] Rate: 31 P: 0 CT: 0 QRS: -87 QRSD: 161 T: 42 QT: 515 QTc: 374 Interpretive Statements IDIOVENTRICULAR RHYTHM Complete heart block CRITICAL TEST RESULT No previous ECG available for comparison Electronically Signed On 10-15-2025 18:38:36 COMMUNICATIONS EQUIPMENT SUPERVISOR by ELVER YU [email or web address]
--- NOTE | 2025-10-15 12:14 | ECG_ITS ---
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
--- NOTE | 2025-10-15 12:15 | ED_ITS ---
HPI - Dizziness 2 General: Chief Complaint: Dizziness Stated Complaint: Cp Sob High BP Time Seen by Provider: 10/15/25 12:01 Source: patient Mode of arrival: ambulatory Limitations: no limitations History of Present Illness: HPI Narrative: 70-year-old male states that over the la st 2 weeks he has had some intermittent chest pains and shortness of breath states he checked his blood pressure today and was hypertensive and 1 to be checked out he denies any pain or shortness of breath currently but he is bradycardic. No history of arrhythmia in the past. He is on metoprolol and amlodipine. Related Data Home Medications ?Medication ?Instructions ?Recorded ?Confirmed amlodipine 10 mg tablet mg PO 05/06/24 05/06/24 metoprolol succinate 100 mg mg PO 05/06/24 05/06/24 tablet,extended release 24 hr Previous Rx's ?Medication ?Instructions ?Recorded CMC brace, left #1 ea 05/06/24 Allergies Allergy/AdvReac Type Severity Reaction Status Date / Time No Known Allergies Allergy Verified 10/15/25 12:14 PFS ED 2 PFSH: Medical History Osteoarthritis of carpometacarpal joint of left thumb Social History Smoking and tobacco/nicotine status: never used tobacco/nicotine Physical Exam 2 Const: COMMON NORMALS: patient oriented x3 HENMT: COMMON NORMALS: normocephalic and atraumatic HEAD & SCALP: n ormocephalic and atraumatic Eye: COMMON NORMALS: conjunctivae normal CONJUNCTIVA: Yes conjunctivae normal Neck/C-Spine: COMMON NORMALS: full ROM and supple Chest: COMMONS NORMALS: normal inspection of the chest Resp: COMMON NORMALS: normal respiratory effort, No retractions, No use of accessory muscles and clear to auscultation bilaterally AUSCULTATION: clear to auscultation bilaterally Cardio: COMMON NORMALS: No murmurs present (Cardio) RATE: bradycardic GI: COMMON NORMALS: Normal to inspection, nondistended, normoactive bowel sounds present, Soft to palpation, non-tender and no masses PALPATION: Yes Soft to palpation Extremity: COMMON NORMALS: normal to inspection and full ROM Neuro: COMMON NORMALS: patient oriented x3, moves all extremities and no focal motor deficits Psych: COMMON NORMALS: mental status grossly normal, Normal thought process present and cooperative THOUGHT PROCESS: Normal thought process present Skin: COMMON NORMALS: no rashes or lesions noted and no wounds GENERAL SKIN EXAM: no rashes or lesions noted Course 2 Vital Signs: Vital signs: Vital Signs Pulse Rate 34 L 10/15/25 12:56 Respiratory Rate 18 10/15/25 12:56 Blood Pressure 156/70 10/15/25 12:56 Pulse Oximetry 95 10/15/25 12:56 Oxygen Delivery Me thod Room Air 10/15/25 12:56 MDM - Dizziness Medical Decision Making Patient presents here initially concerns of hypertension here he has been bradycardic EKG here showed third-degree heart block no history he is asymptomatic. Blood pressures have been normal did attempt atropine with no change in his heart rate could be due to his beta-day I did speak to tile layer Dr. May will hold beta-day admit to the ICU spoke to Dr. ZA burton who is admitting to ICU chest x-ray interpreted by me no acute abnormality labs showed no significant abnormalities critical care time 40 minutesThe high probability of a clinically significant, sudden or life threatening deterioration of the patient's cv system(s) required my full and direct attention, intervention and personal management. The critical care time is as shown. This time is in addition to time spent performing any reported procedures but includes the following: [x] Data and vital sign review and interpretation [x] Patient assessment, examination and intervention [x] Documentation [x] Medication orders and management ekg interperted by me Third-degree heart block heart rate [address] elevation QRS 161 QTc 387 Medical Records I reviewed the patient's medical records. Lab Data I reviewed the patient's lab results. 10/15/25 12:24 10/15/25 12:24 Laboratory Results WBC 7.60 10^3/uL (3.29-11.43) 10/15/25 12:24 RBC 5.74 10^6/uL (3.85-5.65) H 10/15/25 12:24 Hgb 17.80 g/dL (11.27-16.99) H 10/15/25 12:24 Hct 51.1 % (37-53) 10/15/25 12:24 MCV 89.0 fl (82-101) 10/15/25 12:24 MCH 31.0 pg (27-33) 10/15/25 12:24 MCHC 34.8 g/dL (30-55) 10/15/25 12:24 RDW 12.2 % (12.1-15.1) 10/15/25 12:24 Plt Count 222 10^3/cmm (157-399) 10/15/25 12:24 MPV 9.9 fL (7.4-10.4) 10/15/25 12:24 Neut % (Auto) 55.7 % 10/15/25 12:24 Lymph % (Auto) 35.4 % 10/15/25 12:24 [place] % (Auto) 6.8 % 10/15/25 12:24 Eos % (Auto) 1.3 % 10/15/25 12:24 Baso % (Auto) 0.5 % 10/15/25 12:24 Neut # (Auto) 4.23 10^3/uL (1.8-7.7) 10/15/25 12:24 Lymph # (Auto) 2.7 10^3/uL (0.8-4.8) 10/15/25 12:24 [place] # (Auto) 0.5 10^3/uL (0.2-0.9) 10/15/25 12:24 Eos # (Auto) 0.1 10^3/uL (0.0-0.8) 10/15/25 12:24 Baso # (Auto) 0.0 10^3/uL (0.0-0.1) 10/15/25 12:24 Nucleated RBC % (auto) 0 % 10/15/25 12:24 Nucleated RBCs # 0.0 /100WBC 10/15/25 12:24 PT 13.20 SECONDS (12.1-14.9) 10/15/25 12:24 INR 0.94 (0.8-1.2) 10/15/25 12:24 Sodium 139 mmol/L (136-145) 10/15/25 12:24 Potassium 4.2 mmol/L (3.5-5.1) 10/15/25 12:24 Chloride 100 mmol/L (98-107) 10/15/25 12:24 Carbon Dioxide 27 mmol/L (22-29) 10/15/25 12:24 Anion Gap 16.2 (5-19) 10/15/25 12:24 BUN 19 mg/dL (8-23) 10/15/25 12:24 Creatinine 1.0 mg/dL (0.7-1.2) 10/15/25 12:24 Glucose 115 mg/dL (65-115) 10/15/25 12:24 Calculated Osmolality 291 mOsm/kg (285-295) 10/15/25 12:24 Calcium 9.6 mg/dL (8.5-10.5) 10/15/25 12:24 Magnesium 2.2 mg/dL (1.7-2.3) 10/15/25 12:24 Total Bilirubin 0.7 mg/dL (0.15-1.2) 10/15/25 12:24 AST 20 U/L (0-40) 10/15/25 12:24 ALT 22 U/L (0-41) 10/15/25 12:24 Alkaline Phosphatase 91 U/L (40-130) 10/15/25 12:24 Troponin T Baseline 12 ng/L (0-15) 10/15/25 12:24 Total Protein 7.5 g/dL (6.6-8.7) 10/15/25 12:24 Albumin 4.8 g/dL (3.5-5.2) 10/15/25 12:24 Globulin 2.7 g/dL (1.3-4.6) 10/15/25 12:24 Lipase 19 U/L (13-60) 10/15/25 12:24 All radiology interpretation(s) finalized by discharge Critical Care Time 2 Critical Care Time: Critical Care Time: Yes Total Critical Care Time: 40 Attestation: The high probability of a clinically significant, sudden or life threatening deterioration of the patient's cv system(s) required my full and direct attention, intervention and personal management. The critical care time is as shown. This time is in addition to time spent performing any reported procedures but includes the following: [x] Data and vital sign review and interpretation [x] Patient assessment, examination and intervention [x] Documentation [x] Medication orders and management Discharge Plan Discharge Patient Disposition: Admitted As Inpatient Clinical Impression: Third degree heart block Condition: Stable Coding Level of Care Code ED Nuclear Medicine Pet Ct Technologist for Lasha Lemus
[2025-10-15 12:29] LABS: Hematocrit 51.1 % (37-53); Hemoglobin 17.80 g/dL (11.27-16.99); Mean Corpuscular HGB Conc 34.8 g/dL (30-55); Mean Corpuscular Hemoglobin 31.0 pg (27-33); Mean Corpuscular Volume 89.0 fl (82-101); Nucleated Red Blood Cells % 0 %; Platelet Count 222 10^3/cmm (157-399); Red Blood Count 5.74 10^6/uL (3.85-5.65); White Blood Count 7.60 10^3/uL (3.29-11.43)
[2025-10-15 12:43] LABS: INR 0.94 (0.8-1.2); Prothrombin Time 13.20 SECONDS (12.1-14.9)
[2025-10-15] MEDS: atropine 0.1 mg/mL Syr 10 mL 0.5 MG IVP (12:44)
[2025-10-15 12:50] LABS: Troponin(5th) Baseline 12 ng/L (0-15)
[2025-10-15 12:59] LABS: Alanine Aminotransferase 22 U/L (0-41); Albumin Level 4.8 g/dL (3.5-5.2); Alkaline Phosphatase 91 U/L (40-130); Anion Gap 16.2 (5-19); Aspartate Amino Transferase 20 U/L (0-40); Blood Urea Nitrogen 19 mg/dL (8-23); Calcium 9.6 mg/dL (8.5-10.5); Carbon Dioxide 27 mmol/L (22-29); Chloride 100 mmol/L (98-107); Globulin 2.7 g/dL (1.3-4.6); Glucose 115 mg/dL (65-115); Lipase 19 U/L (13-60); NT Pro B Type Natriuretic Pept 167 pg/mL (0-125); Osmolality Calculated 291 mOsm/kg (285-295); Potassium 4.2 mmol/L (3.5-5.1); Sodium 139 mmol/L (136-145); Total Protein 7.5 g/dL (6.6-8.7)
[2025-10-15 13:01] LABS: Magnesium 2.2 mg/dL (1.7-2.3)
--- NOTE | 2025-10-15 13:15 | PM.CONSULT ---
Providers/Reason For Consult Consulting Physician/Specialty*: Noelle Harper MD/interventional cardiology Reason for Consult*: complete heart block with symptomatic bradycardia Requesting Physician: Dr. Fuller History of Present Illness History of Present Illness Mehrdad Truong is a 70 year old male past medical history significant for hypertension for which he is taking 50 mg of extended release metoprolol for many years presented with dizziness feeling fatigued and short of breath. Denies any chest pain. Denies any prior history of medical problem denies renal or liver problem. He was noted to be in complete heart block with A-V dissociation systolic blood pressure was elevated to 180. Despite of repeated atropine heart rate does not went up 35 to 40 bpm however he remains coherent alert awake and oriented. Cardiac markers pending but electrolytes did not show any significant abnormality. Patient denies any extra metoprolol ingestion. Twelve-lead EKG suggestive of underlying right bundle branch block and A-V dissociation with junctional escape suggestive of third-degree heart block. Medications/Allergies Home Medications ?Medication ?Instructions ?Recorded ?Confirmed ?Last Taken ?Type CMC brace, left #1 ea 05/06/24 10/15/25 Unknown Rx amlodipine 10 mg tablet 10 mg PO QPM 05/06/24 10/15/25 10/14/25 19:00 History metoprolol succinate 100 mg 50 mg PO QPM 05/06/24 10/15/25 10/14/25 19:00 History tablet,extended release 24 hr aspirin 81 mg tablet,delayed 81 mg PO DAILY 10/15/25 10/15/25 10/14/25 History release (Birdie Low Dose Aspirin) magnesium carb,citrate,oxide 300 mg PO QAM 10/15/25 10/15/25 10/14/25 09:00 History (Magnesium Complex) Allergies Allergy/AdvReac Type Severity Reaction Status Date / Time No Known Allergies Allergy Verified 10/15/25 12:14 PFSH Acute PFSH: Medical History (Updated 10/15/25 @ 13:10 by Lamberto Gonzalez MD) Osteoarthritis of carpometacarpal joint of left thumb Social History Smoking and tobacco/nicotine status: never used tobacco/nicotine Vitals/I&O/Wt Last Vital Signs Pulse 34 L 10/15/25 12:56 Resp 18 10/15/25 12:56 BP 156/70 10/15/25 12:56 Pulse Ox 95 10/15/25 12:56 O2 Del Method Room Air 10/15/25 12:56 Weight last 48 hrs Weight 229 lb Physical Exam Const: OTHER: GENERAL: Patient is alert, awake and oriented x3. HEART: Regular S1 and S2. No murmur, rub or gallop. LUNGS: Clear to auscultate bilaterally. CENTRAL NERVOUS SYSTEM: Grossly nonfocal. EXTREMITIES: Lower extremities with out edema bilaterally. Data 10/15/25 12:24 10/15/25 12:24 A&P Assessment and plan 1. Third degree heart block: Plan: Will rule out reversible causes, troponin is pending Electrolytes are normal Discontinue metoprolol Will proceed with temporary pacemaker given slow heart rate not responding to atropine for now start patient on dopamine 10 mcg can be titrated up to keep heart rate above 50. Given underlying right bundle branch block now presented with third-degree heart block most likely patient will be needing permanent pacemaker however will rule out metoprolol toxicity over next 24 to 48 hours if heart rate does not improve and continues to require temporary pacemaker will transfer patient out for permanent pacemaker placement since we do not have facility for permanent pacemaker here. For now we will proceed with temporary pacemaker through jugular PDMP PDMP Reviewed: Not Reviewed Consult Attestations Medical Necessity Statement: Patient require continuation hospitalization for above defined care. Coding Level of Care Code Acute Code for Chg Fwd Diagnoses Third degree heart block I44.2
--- NOTE | 2025-10-15 13:42 | XACV_ITS ---
Gender: Male : 1955 Exam Priority: Routine Meredith TRAN; Conclusions 1. Temporary pacemakerIndication: Sinus bradycardia with complete heart block A-V dissociation/dizziness Right internal jugular was cannulated with the help of ultrasound after numbing with lidocaine. IV Versed and fentanyl was given, 6 [place] Arrow sheath was placed. Temporary pacemaker was floated and and placed in right ventricle at interventricular septum. Pacemaker was tested, baseline heart rate was 70 bpm with sensitivity and output of 2. Good capture was recorded. Pacemaker was sutured in understood lysed condition. Patient is being transferred to ICU.No complication. Recommendations * Usual temporary pacemaker care. I, the attending physician, have reviewed and verified all procedure medications. Yes, all medications given per verbal order Report Signatures Finalized by Noelle Harper MD on 10/15/2025 03:10 PM
[2025-10-15] MEDS: DOPamine drip 400 MG/250 ML PREMIX 38.95 MG IV (13:48)
--- NOTE | 2025-10-15 13:58 | PC.NURSE ---
verbal order from dr locke to start a dopamine drip at 10 mcg. order placed, drip started at [address] locke.
--- NOTE | 2025-10-15 14:17 | W.PM.OPSUD ---
Surgery/Procedure H&P Update DATE OF PROCEDURE: October 15, 2025 DATE H&P PERFORMED: 10/15/25 H&P UPDATE INFORMATION: I have reviewed H&P completed within last 30 days, I have examined patient prior to procedure and No changes to prior documentation PREOP DIAGNOSIS: Complete heart block PRIMARY INDICATION FOR PROCEDURE: Complete heart block with A-V dissociation PLANNED PROCEDURE: Temporary pacemaker placement through jugular or common femoral PATIENT REASSESSED PRIOR TO SEDATION, WITH NO CHANGE NOTED: Yes PHYSICAL EXAM: alert, oriented x 3, clear to auscultation bilaterally, regular rate & rhythm and operative site marked AIRWAY EVAL/ANESTHESIA PLAN: ASA II, Risks, benefits & alternatives of sedation and/or procedure discussed and Patient agrees to continue as planned ADDITIONAL INFORMATION: All risk-benefit and alternative for the procedure has been explained to the patient. Patient understand 2% risk of stroke major bleed. Patient restand 5% risk of minor bleeding oozing infection hematoma vascular injury radiation injury. Patient agrees to it and would like to proceed with that
--- NOTE | 2025-10-15 17:29 | PM.HP ---
Providers/Chief Complaint Admitting Physician: Noelle Harper MD Chief Complaint: Cp Sob High BP History of Present Illness Mehrdad Truong is a 70 year old male who came to the ER today because of complaint of difficulty breathing. Patient reports gradual onset of symptoms. This morning, he checked his vital signs at home with home some BP machine at home, which found that his pulse was very low . Therefore, he came to the ER for further evaluation. On getting to the ER, he is posted was noted to be in the 30s. He was also noted to be symptomatic, which manifested some dizziness and difficulty breathing. Consequently, alert was called, who took patient to the House Principal and put the temporary pacemaker, given diagnosis of third-degree heart block. Thereafter, he was sent to the ICU for further eval for further monitoring. Upon seeing him in the ICU, he reports sleeping is stable. He denies any new symptoms. No more difficulty breathing reported. He denies any associated cough, fever, wheezing, or chest pain. Review of Systems Narrative: General: Negative for fever, headaches, dizziness or weakness. CVS: Negative for chest pain, palpitations or dyspnea on exertion. GI: Negative for nausea, vomiting, or diarrhea/constipation. UGS: Negative for dysuria, urgency or increased urinary frequency. All other systems reviewed, and essentially negative, except as in the HPI. Medications/Allergies Home Medications ?Medication ?Instructions ?Recorded ?Confirmed ?Last Taken ?Type JONI brace, left #1 ea 05/06/24 10/15/25 Unknown Rx amlodipine 10 mg tablet 10 mg PO QPM 05/06/24 10/15/25 10/14/25 19:00 History metoprolol succinate 100 mg 50 mg PO QPM 05/06/24 10/15/25 10/14/25 19:00 History tablet,extended release 24 hr aspirin 81 mg tablet,delayed 81 mg PO DAILY 10/15/25 10/15/25 10/14/25 History release (Birdie Low Dose Aspirin) magnesium carb,citrate,oxide 300 mg PO QAM 10/15/25 10/15/25 10/14/25 09:00 History (Magnesium Complex) Allergies Allergy/AdvReac Type Severity Reaction Status Date / Time No Known Allergies Allergy Verified 10/15/25 12:14 PFSH Acute PFSH: Medical History Osteoarthritis of carpometacarpal joint of left thumb Social History Smoking and tobacco/nicotine status: never used tobacco/nicotine Vitals/I&O/Wt Last Vital Signs Pulse 70 10/15/25 16:15 Resp 14 10/15/25 16:15 BP 156/91 10/15/25 16:15 Pulse Ox 96 10/15/25 16:15 O2 Del Method Room Air 10/15/25 16:15 10/15/25 10/15/25 10/15/25 06:59 14:59 22:59 Output Total 250 / 250 Balance -250 / -250 Weight last 48 hrs Weight 101.151 kg Weight 103.873 kg Physical Exam Narrative: General: Awake and alert. No obvious respiratory distress. Neuro/Psych: Cranial nerves II to XII grossly intact. No obvious focal deficits. Chest/Resp: Bilateral equal air entry; chest clinically clear. CVS: Rhythm: Regular heart rate and rhythm. No obvious murmurs appreciated. GI: Soft and non-tender abdomen. No obvious organomegaly. Extremities: Bilateral equal pulses. No obvious pitting pedal edema. Skin: No obvious skin rashes or significant lesions. Moist mucous membranes. MSK: No obvious joint effusions or bony deformities noted. No apparent muscle tenderness. Data 10/15/25 12:24 10/15/25 12:24 CXR: My impression: Reviewed by me, shows no obvious unusual opacities or lucencies. Cardiothoracic ratio looks normal. Radiologist's impression: Lungs: Unremarkable. No consolidation. Pleural spaces: Unremarkable. No pleural effusion. No pneumothorax. Heart/Mediastinum: Unremarkable. No cardiomegaly. Bones/joints: Mild degenerative changes of the thoracic spine and bilateral glenohumeral joints. IMPRESSION: No acute findings. EKG 1: My Interpretation: Sinus bradycardia with heart rate of [address] abnormality. Prior ECG tracings: not available for review 10/15/25 13:23 EKG 2: My Interpretation: This EKG was done out of the temporary pacemaker insertion, and shows electronically paced rhythm at [address] abnormality. 10/15/25 18:10 A&P Assessment and plan 1. Severe sinus bradycardia: Likely drug-induced; resolved at the moment. 2. Temporary transvenous cardiac pacemaker present: 3. Essential hypertension: Plan: 1. Severe sinus bradycardia, likely drug-induced: Will hold metoprolol and amlodipine at this time. Monitor closely. Otherwise, defer to the sheet metal installer. Will check other possible secondary causes of this, eg TSH to rule out hypothyroidism. 2. Essential hypertension: Patient's blood pressure normal at the moment. Like mentioned above, will hold amlodipine and metoprolol. If needed, we will control patient's blood pressure with lisinopril. PDMP PDMP Reviewed: Not Reviewed Attestations Medical Necessity Statement*: Patient admitted for apparent severe clinical condition, as outlined in the Assessment & Plan section above. Patient will need up to 2 midnight stay, estimated, at least, to adequately and appropriately treat and optimally control above-named clinical conditions,. Coding Level of Care Code 81159 Diagnoses Severe sinus bradycardia R00.1 Temporary transvenous cardiac pacemaker present Z95.0 Essential hypertension I10
--- NOTE | 2025-10-15 17:44 | ECG_ITS ---
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
[2025-10-15] MEDS: pantoprazole 40 mg SDV IVP (18:14)
[2025-10-15 19:07] LABS: Troponin 5 6HR 33.14 ng/L (0-15)
[2025-10-15 19:12] LABS: Troponin 5 6HR Delta 21.14 ng/L (0-12)
[2025-10-16] VITALS (52 sets, daily range): BP systolic 95–171; BP diastolic 54–100; PULSE 65–70; RESP 1–23; TEMP 36.6–37.1; O2SAT 92–99
[2025-10-16 04:20] LABS: Hematocrit 49.7 % (37-53); Hemoglobin 17.10 g/dL (11.27-16.99); Mean Corpuscular HGB Conc 34.4 g/dL (30-55); Mean Corpuscular Hemoglobin 31.0 pg (27-33); Mean Corpuscular Volume 90.0 fl (82-101); Nucleated Red Blood Cells % 0 %; Platelet Count 193 10^3/cmm (157-399); Red Blood Count 5.52 10^6/uL (3.85-5.65); White Blood Count 8.71 10^3/uL (3.29-11.43)
[2025-10-16 04:42] LABS: Blood Urea Nitrogen 13 mg/dL (8-23); Calcium 9.0 mg/dL (8.5-10.5); Carbon Dioxide 22 mmol/L (22-29); Chloride 104 mmol/L (98-107); Glucose 98 mg/dL (65-115); Osmolality Calculated 288 mOsm/kg (285-295); Sodium 139 mmol/L (136-145)
[2025-10-16 04:43] LABS: Cholesterol 175 mg/dL (0-200); HDL Cholesterol 46 mg/dL (60-100); Magnesium 2.1 mg/dL (1.7-2.3); Thyroid Stimulating Hormone 3.73 uIU/mL (0.27-4.20); Triglycerides 82 mg/dL (0-150)
[2025-10-16 05:17] LABS: Anion Gap 16.9 (5-19); Potassium 3.9 mmol/L (3.5-5.1)
--- NOTE | 2025-10-16 10:29 | PM.PN ---
Vitals/I&O/Wt Last Vital Signs Temp 98.7 F 10/16/25 07:30 Pulse 68 10/16/25 08:30 Resp 10 L 10/16/25 08:30 BP 147/93 10/16/25 08:30 Pulse Ox 96 10/16/25 08:30 O2 Del Method Room Air 10/16/25 08:30 10/15/25 10/16/25 10/16/25 22:59 06:59 14:59 Intake Total 303.065 / 303.065 240 / 543.065 400 / 400 Output Total 1150 / 1150 1550 / 2700 500 / 500 Balance -846.935 / -846.935 -1310 / -2156.935 -100 / -100 Weight last 48 hrs Weight 100 kg Weight 101.151 kg Weight 103.873 kg Data 10/16/25 03:45 10/16/25 03:45 A&P PDMP PDMP Reviewed: Not Reviewed Coding Level of Care Code Acute Code for Chg Mariah
--- NOTE | 2025-10-16 11:40 | PC.NURSE ---
Dr Harper at bedside. Rhythm check done. Pacemaker to 40bpm, His heart rate dropped to 47. Pacemaker to 30 bpm. His heart rte decreased to 35. Mobitz type 2 noted. Pacemkaer reset to 70bpm. No changes in mA or sensitivity, Both remain at 2.
[2025-10-16] MEDS: heparin 5,000 unit/mL INJ 1 mL 5000 UNIT SUBCUT (12:51)
--- NOTE | 2025-10-16 14:07 | P.PN_ITS ---
Subjective 2 Subjective: Conitnue to Use pacemaker with underlying Mobitz type 2 to intermittent complete heart block Off of Metoprolol since friday Vitals/I&O/Wt Last Vital Signs Temp 97.8 F 10/16/25 13:22 Pulse 70 10/16/25 13:45 Resp 10 L 10/16/25 13:45 BP 130/84 10/16/25 13:45 Pulse Ox 96 10/16/25 13:45 O2 Del Method Room Air 10/16/25 13:45 10/15/25 10/16/25 10/16/25 22:59 06:59 14:59 Intake Total 303.065 / 843.216 9553 / 1543.065 800 / 800 Output Total 1150 / 1150 1550 / 2700 1050 / 1050 Balance -846.935 / -846.935 -310 / -1156.935 -250 / -250 Weight last 48 hrs Weight 220 lb 7.396 oz Weight 223 lb Weight 229 lb Physical Exam 2 Const: COMMON NORMALS: alert OTHER: GENERAL: Patient is alert, awake and oriented x3. HEART: Regular S1 and S2. No murmur, rub or gallop. LUNGS: Clear to auscultate bilaterally. CENTRAL NERVOUS SYSTEM: Grossly nonfocal. EXTREMITIES: Lower extremities with out edema bilaterally. Resp: COMMON NORMALS: clear to auscultation bilaterally AUSCULTATION: clear to auscultation bilaterally Neuro: SENSORIUM/ORIENTATION: Yes alert Data 10/16/25 03:45 10/16/25 03:45 A&P Assessment and plan 1. Third degree heart block: Plan: Will rule out reversible causes, troponin is pending Electrolytes are normal Discontinue metoprolol Will proceed with temporary pacemaker given slow heart rate not responding to atropine for now start patient on dopamine 10 mcg can be titrated up to keep heart rate above 50. Given underlying right bundle branch block now presented with third-degree heart block most likely patient will be needing permanent pacemaker however will rule out metoprolol toxicity over next 24 to 48 hours if heart rate does not improve and continues to require temporary pacemaker will transfer patient out for permanent pacemaker placement since we do not have facility for permanent pacemaker here. For now we will proceed with temporary pacemaker through jugular On today's visit dated 10/16/2025 patient remains in complete heart block requiring temporary pacemaker with underlying baseline rate of 30. We therefore recommend permanent pacemaker placement. Unfortunately service is not available at our hospital. We will be transferring the patient. Hospitalist team is working on it. Further plan will be devised as per progress of the patient PDMP PDMP Reviewed: Not Reviewed Attestations 2 Medical Necessity Statement*: Patient require continuation hospitalization for above defined care Coding Level of Care Code Acute Code for Chg Fwd Diagnoses Third degree heart block I44.2
--- NOTE | 2025-10-16 14:11 | P.DS_ITS ---
Discharge Providers Date of Admission: 10/15/25 15:54 Date of Discharge: October 16, 2025 Attending Provider at Admission: Noelle Harper MD Attending Provider at Discharge: Noelle Harper MD Diagnoses at Discharge Discharge Diagnosis 1. Third degree heart block: 2. Severe sinus bradycardia: 3. Temporary transvenous cardiac pacemaker present: 4. Essential hypertension: Reason for Visit Reason for Visit: Dizziness and difficulty breathing Brief History: Patient presented to the ER with complaint of difficulty breathing, in the face prior dizziness. He was found to be severely bradycardic on presentation, and which was initially attributed to use of metoprolol. Consequently, cardiology was consulted, who put in a temporary pacemaker immediately. Patient was thereafter admitted to the ICU, where he was closely monitored. His amlodipine and metoprolol were held. Hospital Course Hospital Course Patient remained stable, otherwise, in the ICU. As of today, attempt was made to wean of the temporary pacemaker. This unfortunately was not successful, with patient's baseline heart rate dipping down to the low 30s. As a result, he was recommended by the glassware engraver here, Dr. Harper, for transfer to higher level of care, where he could possibly get a permanent cardiac pacemaker. [facility], was therefore contacted. Patient was accepted by the hotel superintendent, Dr. Flores, who will consult with the glassware engraver. I earlier spoke with glassware engraver, Dr. Lombardi, who directed to be consulted together with elctrophysiologist upon patient's arrival. Physical Exam Narrative: General: Awake and alert patient. Temporal pacemaker in place. CVS: Rhythmical & Regular heart rate. No murmurs. Resp: No obvious respiratory distress or difficulty breathing. Skin: No obvious rashes or new skin lesions. All other physical findings essentially within normal limits. 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 Laboratory Results WBC 8.71 10^3/uL (3.29-11.43) 10/16/25 03:45 RBC 5.52 10^6/uL (3.85-5.65) 10/16/25 03:45 Hgb 17.10 g/dL (11.27-16.99) H 10/16/25 03:45 Hct 49.7 % (37-53) 10/16/25 03:45 MCV 90.0 fl (82-101) 10/16/25 03:45 MCH 31.0 pg (27-33) 10/16/25 03:45 MCHC 34.4 g/dL (30-55) 10/16/25 03:45 RDW 12.1 % (12.1-15.1) 10/16/25 03:45 Plt Count 193 10^3/cmm (157-399) 10/16/25 03:45 MPV 10.1 fL (7.4-10.4) 10/16/25 03:45 Neut % (Auto) 69.6 % 10/16/25 03:45 Lymph % (Auto) 22.7 % 10/16/25 03:45 [place] % (Auto) 6.4 % 10/16/25 03:45 Eos % (Auto) 0.7 % 10/16/25 03:45 Baso % (Auto) 0.3 % 10/16/25 03:45 Neut # (Auto) 6.05 10^3/uL (1.8-7.7) 10/16/25 03:45 Lymph # (Auto) 2.0 10^3/uL (0.8-4.8) 10/16/25 03:45 [place] # (Auto) 0.6 10^3/uL (0.2-0.9) 10/16/25 03:45 Eos # (Auto) 0.1 10^3/uL (0.0-0.8) 10/16/25 03:45 Baso # (Auto) 0.0 10^3/uL (0.0-0.1) 10/16/25 03:45 Nucleated RBC % (auto) 0 % 10/16/25 03:45 Nucleated RBCs # 0.0 /100WBC 10/16/25 03:45 PT 13.20 SECONDS (12.1-14.9) 10/15/25 12:24 INR 0.94 (0.8-1.2) 10/15/25 12:24 Sodium 139 mmol/L (136-145) 10/16/25 03:45 Potassium 3.9 mmol/L (3.5-5.1) 10/16/25 03:45 Chloride 104 mmol/L (98-107) 10/16/25 03:45 Carbon Dioxide 22 mmol/L (22-29) 10/16/25 03:45 Anion Gap 16.9 (5-19) 10/16/25 03:45 BUN 13 mg/dL (8-23) 10/16/25 03:45 Creatinine 0.7 mg/dL (0.7-1.2) 10/16/25 03:45 GFR Calculation 112.1 mL/min (90-130) 10/16/25 03:45 Glucose 98 mg/dL (65-115) 10/16/25 03:45 Calculated Osmolality 288 mOsm/kg (285-295) 10/16/25 03:45 Calcium 9.0 mg/dL (8.5-10.5) 10/16/25 03:45 Magnesium 2.1 mg/dL (1.7-2.3) 10/16/25 03:45 Total Bilirubin 0.7 mg/dL (0.15-1.2) 10/15/25 12:24 AST 20 U/L (0-40) 10/15/25 12:24 ALT 22 U/L (0-41) 10/15/25 12:24 Alkaline Phosphatase 91 U/L (40-130) 10/15/25 12:24 Troponin T Baseline 12 ng/L (0-15) 10/15/25 12:24 Troponin T 120 Minute 11.97 ng/L (0-15) 10/15/25 14:08 Delta Troponin T -0.03 ABS# (0-10) L 10/15/25 14:08 Troponin T Hi Sens 6Hr 33.14 ng/L (0-15) H 10/15/25 18:36 Troponin T Hi Sens 6Hr Delta 21.14 ng/L (0-12) H* 10/15/25 18:36 NT-Pro-B Natriuret Pep 167 pg/mL (0-125) H 10/15/25 12:24 Total Protein 7.5 g/dL (6.6-8.7) 10/15/25 12:24 Albumin 4.8 g/dL (3.5-5.2) 10/15/25 12:24 Globulin 2.7 g/dL (1.3-4.6) 10/15/25 12:24 Triglycerides 82 mg/dL (0-150) 10/16/25 03:45 Cholesterol 175 mg/dL (0-200) 10/16/25 03:45 LDL Cholesterol, Calc 113 mg/dL (50-129) 10/16/25 03:45 HDL Cholesterol 46 mg/dL (60-100) L 10/16/25 03:45 LDL/HDL Ratio 2.46 RATIO (0.00-3.22) 10/16/25 03:45 Cholesterol/HDL Ratio 3.80 mg/dL (1.0-5.00) 10/16/25 03:45 Lipase 19 U/L (13-60) 10/15/25 12:24 TSH 3.73 uIU/mL (0.27-4.20) 10/16/25 03:45 Vitals Last Vital Signs Temp 97.8 F 10/16/25 13:22 Pulse 70 10/16/25 13:45 Resp 10 L 10/16/25 13:45 BP 130/84 10/16/25 13:45 Pulse Ox 96 10/16/25 13:45 O2 Del Method Room Air 10/16/25 13:45 Discharge Plan Discharge Patient Disposition: Xfer Other Condition: Stable Prescriptions: No Action amlodipine 10 mg tablet 10 mg PO QPM metoprolol succinate 100 mg tablet extended release 24 hr 50 mg PO QPM (DME) [facility] brace, left See Rx Instructions .Route .MEDSUPPLY Qty: 1 0RF Rx Instructions: As directed aspirin [Birdie Low Dose Aspirin] 81 mg Tablet,Delayed Release (Dr/Ec) 81 mg PO DAILY Magnesium Complex 300 mg magnesium Tablet 300 mg PO QAM Watch Dial Printer OK for DC: Cardiology Discharge Order = DC NOW: Discharge Order (Routine); Ordered 10/16/25 Ordered By: Reg Brock Patient Instructions: Opioid Safety, Patient Portal & Chandan Instructions Activity Restrictions/Additional Instructions: Transfer to [place], [place], under care of the hotel superintendent, Dr. Green. Plan of Treatment: Getting transferred to higher level of care. Discharge Attestations Time Spent in Discharge Care*: greater than 30 min Quality Metrics Clinical Quality Measures [ No reported AMI, CVA or VTE this stay] Coding Level of Care Code 71777 Diagnoses Third degree heart block I44.2 Severe sinus bradycardia R00.1 Temporary transvenous cardiac pacemaker present Z95.0 Essential hypertension I10
--- NOTE | 2025-10-16 14:12 | PC.NURSE ---
Report called to [facility] for room 3306. Report given to Alec Murillo RN. All questions answered.
--- NOTE | 2025-10-16 15:15 | PC.NURSE ---
Pt discharged with ambulance crew.
== END 2025-10-16 15:14 | disposition short-term general hospital (02) | DRG 310 ==
LOC: ER 13:42 → CCL 13:43 → ICU 15:55
PROVIDERS: Family Medicine; Admitting Provider Internal Medicine Cardiovascular Disease; Emergency Provider Emergency Medicine; Visit Provider Internal Medicine Cardiovascular Disease
PROC: 5A1223Z Performance of Cardiac Pacing, Continuous (ICD-10-PCS; principal; 2025-10-15 14:30)
DX: I44.2 Atrioventricular block, complete (principal); I10 Essential (primary) hypertension; Z79.82 Long term (current) use of aspirin
CPT/HCPCS: 33210; 36415; 71045; 80048; 80053; 80061; 83690; 83735; 83880; 84443; 84484; 85025; 85610; 93005; 96365; 96372; 96374; 99152; 99153; 99291; C1769; C1779; C1894; J0461; J1265; J1644; J2250; J2470; J3010; J3490; J7030; J9999

== ENCOUNTER 2025-11-09 07:52 | Outpatient (CLI) | payer MEDICARE, SELFPAY ==
--- NOTE | 2025-11-09 08:09 | CTR_ITS ---
PROCEDURE INFORMATION: Exam: CT Chest Without Contrast; Diagnostic Exam date and time: 11/09/2025 8:13 AM Age: 70 years old Clinical indication: Condition or disease; Lung condition and disease; Pulmonary nodule, solitary; Prior surgery; Surgery date: <1 month; Surgery type: Pacemaker- 4 weeks ago; Additional info: R pulmonary nodule TECHNIQUE: Imaging protocol: Diagnostic computed tomography of the chest without contrast. Radiation optimization: All CT scans at this facility use at least one of these dose optimization techniques: automated exposure control; mA and/or kV adjustment per patient size (includes targeted exams where dose is matched to clinical indication); or iterative reconstruction. COMPARISON: CR (CHEST, ) 10/15/2025 12:23 PM RADIATION DOSE METRICS: Total DLP (mGy-cm): 591.39 FINDINGS: Tubes, catheters and devices: Left-sided transvenous pacemaker with leads in right atrium and right ventricle. Thyroid: 7 mm hypodensity of thyroid isthmus may represent small cyst or adenoma. Otherwise unremarkable appearance of thyroid gland. Lungs: No endotracheal or endobronchial lesion noted. No lobar pneumonia. No lung mass. No bronchiectasis. Minimal strandy density inferior aspect right middle lobe may represent small amount of atelectasis or fibrotic change. Minimal density posteroinferior aspect left lower lobe may represent small amount of atelectasis or fibrotic change. Approximate 48 x 19 mm ground-glass density posterior aspect right lower lobe. Pleural spaces: No pneumothorax. Heart: Mild prominence of the pericardium anteriorly with diameter 12-13 mm may represent pericardial thickening or some proteinaceous fluid in the pericardial space. Heart size normal. Coronary arteries: Some atherosclerotic calcification appears present left coronary artery. Esophagus: Esophagus appears grossly unremarkable. Mediastinal space: No pneumomediastinum. No anterior mediastinal mass. Lymph nodes: No axillary adenopathy. Probable lymph nodes posterior to the distal esophagus with short axis diameter 11 mm. No other enlarged mediastinal lymph nodes noted. No hilar adenopathy noted on noncontrast exam. Vasculature: Scattered atherosclerotic calcification of thoracic aorta. No aneurysm of the thoracic aorta. Adrenal glands: Prominence of each adrenal gland apex may represent presence of adenomas. Approximate 13 mm nodule right adrenal gland measuring approximately 8 Hounsfield units probably representing adenoma. Smaller nodules left adrenal gland measuring 6-13 Hounsfield units probably representing adenomas. Intraperitoneal space: No ascites upper abdomen. Bones/joints: Bone mineralization appears unremarkable. Some hypertrophic changes of the spine. No lytic or blastic process noted. Soft tissues: No chest wall mass noted. CT/CT chest wo con [id number] IMPRESSION: 1. 13 mm and smaller nodules of the adrenal glands may represent adenomas. Comparison with any previous chest CT exams or abdominal CT exams would be helpful. CT of abdomen in 12 months may be helpful for further evaluation if needed. 2. Mildly prominent lymph nodes suggested posterior to distal esophagus. Comparison with any previous chest CT or abdominal CT exams would be helpful. If none available, CT of chest, abdomen and pelvis with contrast in 3-6 months may be helpful for further evaluation. 3. 48 x 19 mm ground-glass opacity right lower lobe lung. No lung mass demonstrated. CT of the chest in 6-12 months may be helpful for further evaluation if there are no previous exams for comparison. 4. Prominence of the pericardial space anteriorly may represent some pericardial thickening or some proteinaceous fluid. COMMENTS: 1. Consistent with the [employer]'s Incidental Findings Committee white paper (J Am Jovany Radiol 2017): Any incidental adrenal lesion less than 1 cm is likely benign. No follow-up imaging is recommended for these lesions per consensus recommendations based on imaging criteria. Further lab evaluation could be pursued if warranted based on clinical findings. 2. Consistent with the [employer]'s Incidental Findings Committee white paper (J Am Jovany Radiol 2017): For any incidental adrenal lesion greater than or equal to 1 cm but less than or equal to 4 cm classified in this report as benign, likely benign, or containing fat (including classification as an adenoma or myelolipoma), no follow-up imaging is recommended per consensus recommendations based on imaging criteria. Further lab evaluation could be pursued if warranted based on clinical findings. 3. Consistent with the [employer]'s Incidental Findings Committee white paper (J Am Jovany Radiol 2015): In patients aged 35 years and older with an incidental thyroid nodule equal to or greater than 1.[address], MRI or extrathyroidal US, further evaluation with dedicated thyroid US is recommended for patients with normal life expectancy and without comorbidities. For smaller nodules without suspicious features, no further evaluation or follow up is recommended.
== END 2025-11-09 07:53 | disposition home or self-care (01) ==
PROVIDERS: Visit Provider Nurse Practitioner Family
DX: R91.1 Solitary pulmonary nodule (principal); E07.89 Other specified disorders of thyroid; I25.10 Atherosclerotic heart disease of native coronary artery without angina pectoris; E27.8 Other specified disorders of adrenal gland
CPT/HCPCS: 71250